=== PATIENT | female | born 1965 | race Caucasian/White ===

== ENCOUNTER 2018-04-14 14:10 | Emergency (ER) | payer OTHER ==
--- NOTE | 2018-04-14 14:55 | EDPHY ---
H & P Stated Complaint: nausea/dizzy with room spinning hyperventilation carpal spasm Time Seen by Provider: 04/14/18 14:51 HPI/ROS: CHIEF COMPLAINT: Vertigo HISTORY OF PRESENT ILLNESS: The patient presents the ED with complaints of vertigo and nausea and nausea that began today at work. She denies antecedent upper respiratory symptoms. The patient denies fever cough or congestion. She denies history of fall or trauma. The patient denies headache. The patient reports her symptoms are worsened with positional changes and head movement. REVIEW OF SYSTEMS: A comprehensive 10 point review of systems is otherwise negative aside from elements mentioned in the history of present illness. Source: Patient Exam Limitations: No limitations - Personal History LMP (Females 10-55): Hysterectomy Current Tetanus Diphtheria and Acellular Pertussis (TDAP): No - Medical/Surgical History Hx Asthma: No Hx Chronic Respiratory Disease: No Hx Diabetes: No Hx Cardiac Disease: No Hx Renal Disease: No Hx Cirrhosis: No Hx Alcoholism: No Hx HIV/AIDS: No Hx Splenectomy or Spleen Trauma: No Other PMH: hysterectomy/sacral colpoplexy - Social History Smoking Status: Never smoked - Physical Exam Exam: General Appearance: Alert, no distress Eyes: Pupils equal and round no pallor or injection ENT, Mouth: Mucous membranes moist Respiratory: There are no retractions, lungs are clear to auscultation Cardiovascular: Regular rate and rhythm Gastrointestinal: Abdomen is soft and nontender, no masses, bowel sounds normal Neurological: A&O, normal motor function, normal sensory exam, normal cranial nerves, horizontal nystagmus noted with rightward gaze Skin: Warm and dry, no rashes Musculoskeletal: Neck is supple nontender Extremities: symmetrical, full range of motion Constitutional: Initial Vital Signs Temperature (C) 36.3 C 04/14/18 14:25 Heart Rate 60 04/14/18 14:25 Respiratory Rate 18 04/14/18 14:25 Blood Pressure 133/77 H 04/14/18 14:25 O2 Sat (%) 98 04/14/18 14:25 O2 Delivery Mode Room Air Allergies/Adverse Reactions: No Known Allergies Allergy (Unverified 04/14/18 14:25) Home Medications: Medication Instructions Recorded Meclizine HCl [Meclizine HCl 25 mg 25 mg PO BID PRN #20 tab 04/14/18 (RX,OTC)] Ondansetron Odt [Zofran Odt] 4 mg PO Q4PRN PRN #20 tab 04/14/18 Medical Decision Making - Diagnostics EKG Interpretation: EKG: Complete interpretation has been separately recorded in the [facility] archive. Summary impression: Sinus rhythm, rate 68 ED Course/Re-evaluation: The patient presents the ED with classic benign positional vertigo. Her neurologic examination is otherwise normal. She is treated with oral meclizine and Zofran. The patient was re-evaluated at 4:00 p.m.. She is feeling considerably better without any ongoing symptoms of vertigo. She will be discharged home with a prescription for meclizine and Zofran. She is given customary aftercare instructions and return precautions. - Data Points Medications Given: Discontinued Medications Meclizine HCl (Meclizine Hcl) 25 mg PO EDNOW ONE Stop: 04/14/18 14:59 Last Admin: 04/14/18 15:45 Dose: 25 mg Ondansetron HCl (Zofran Odt) 4 mg PO EDNOW ONE Stop: 04/14/18 14:59 Last Admin: 04/14/18 15:15 Dose: 4 mg Departure - Departure Disposition: Home, Routine, Self-Care Clinical Impression: Vertigo Condition: Good Instructions: Vertigo (ED) Additional Instructions: 1. Meclizine as needed for recurrent dizziness. Zofran as needed for nausea. 2. Return to the ED for the development of any new neurologic symptoms, severe headache or other concerns. 3. Follow up with your primary care provider as needed.
[2018-04-14] MEDS ORDERED: ONDANSETRON DISINTEGRATING 4 MG TAB PO ONE (14:58)
[2018-04-14] MEDS ORDERED: MECLIZINE HCL 25 MG TAB PO ONE (14:58)
--- NOTE | 2018-04-14 15:01 | CPEKG ---
Heart Rate: 68 RR Interval: 882 P-R Interval: 164 QRSD Interval: 86 QT Interval: 428 QTC Interval: 456 P Mccaskill: 50 QRS Mccaskill: -5 T Wave Mccaskill: 54 EKG Severity - NORMAL ECG - EKG Impression: SINUS RHYTHM Electronically Signed By: Anant Sibley 14-Apr-2018 15:14:48
[2018-04-14 16:23] VITALS: BP 133/80
== END 2018-04-14 16:24 | disposition home or self-care (01) ==
DX: R42 Dizziness and giddiness (principal)